=== PATIENT | male | born 1960 | race Caucasian/White ===

== ENCOUNTER 2018-03-08 21:00 | Emergency (ER) | payer OTHER ==
[2018-03-08 21:22] VITALS: BP 118/72; PULSE 71; TEMP 97.9; BMI 36.5
--- NOTE | 2018-03-08 21:40 | PDOC ---
History of Present Illness - General Chief Complaint: Rash Stated Complaint: RIGHT EYE PAIN AND SWELLING Time Seen by Provider: 03/08/18 21:31 History Source: Patient - History of Present Illness Initial Comments: 03/08/18 21:45 58 year old male with right eye lid redness and pain reports sratching the eye lid at work 2 days ago. redness worsening with pain to the right upper eye lid. no pain to the eye with movement no periorbital redness noted. Past History - Past Medical History Allergies/Adverse Reactions: Allergies Allergy/AdvReac Type Severity Reaction Status Date / Time No Known Allergies Allergy Verified 03/08/18 21:23 Home Medications: Ambulatory Orders Atorvastatin Ca [Lipitor] 10 mg PO HS 04/01/14 Cholecalciferol (Vitamin D3) [Vitamin D3] 1 tab PO DAILY 04/01/14 Amox-Tr/K Cl [Augmentin - 875Mg Tablet] 1 tab PO BID #20 tablet 03/08/18 Anemia: No Asthma: No Cancer: No Cardiac Disorders: No CVA: No COPD: No CHF: No Dementia: No Diabetes: Yes (LATENT DIABETES) GI Disorders: Yes (HEMORRHOIDS) Disorders: Yes (BPH) HTN: No Hypercholesterolemia: Yes Liver Disease: No Seizures: No Thyroid Disease: No - Surgical History Abdominal Surgery: No Appendectomy: No Cardiac Surgery: No Cholecystectomy: No Lung Surgery: No Neurologic Surgery: No Orthopedic Surgery: No - Suicide/Smoking/Psychosocial Hx Smoking History: Never smoked Have you smoked in the past 12 months: No Information on smoking cessation initiated: No Hx Alcohol Use: No Drug/Substance Use Hx: No Substance Use Type: None Hx Substance Use Treatment: No *Physical Exam - Vital Signs Last Vital Signs Temp Pulse Resp BP Pulse Ox 97.9 F 71 18 118/72 96 03/08/18 21:17 03/08/18 21:17 03/08/18 21:17 03/08/18 21:17 03/08/18 21:17 - Physical Exam General Appearance: Yes: Appropriately Dressed HEENT: positive: Other (right upper eye lid erythema warm to touch. PERRLA) Moderate Sedation - Procedure Monitoring Vital Signs: Procedure Monitoring Vital Signs Temperature 97.9 F 03/08/18 21:17 Pulse Rate 71 03/08/18 21:17 Respiratory Rate 18 03/08/18 21:17 Blood Pressure 118/72 03/08/18 21:17 O2 Sat by Pulse Oximetry (%) 96 03/08/18 21:17 *DC/Admit/Observation/Transfer Diagnosis at time of Disposition: Preseptal cellulitis of right eye - Discharge Dispostion Disposition: HOME - Prescriptions Prescriptions: Amox-Tr/K Cl [Augmentin - 875Mg Tablet] 1 tab PO BID #20 tablet - Referrals Referrals: Violette Winter MD [Staff Physician] - 2 Days - Patient Instructions Printed Discharge Instructions: DI for Cellulitis -- Adult Additional Instructions: Apply warm compress to the area Follow-up with an oil field laborer as soon as possible Return to the ER if symptoms worsen - Post Discharge Activity
== END 2018-03-08 22:00 | disposition home or self-care (01) ==
LOC: JERFT 21:00
DX: H00.031 Abscess of right upper eyelid (principal)
CPT/HCPCS: 99281-25

== ENCOUNTER 2021-05-12 04:34 | Day surgery (SDC) | payer OTHER ==
[2021-05-09 13:20] VITALS: BMI 45.3
[2021-05-12 09:43] VITALS: TEMP 97.7
[2021-05-12 10:22] VITALS: BP 110/60; PULSE 64
== END 2021-05-12 10:25 | disposition home or self-care (01) ==
LOC: JASU-ENDO 04:34
PROVIDERS: ATTEND Internal Medicine Gastroenterology
PROC: 0DBL8ZX Excision of Transverse Colon, Via Natural or Artificial Opening Endoscopic, Diagnostic (ICD-10-PCS; 2021-05-12)
PROC: 0DBK8ZX Excision of Ascending Colon, Via Natural or Artificial Opening Endoscopic, Diagnostic (ICD-10-PCS; principal; 2021-05-12 09:00)
DX: Z12.11 Encounter for screening for malignant neoplasm of colon (principal); D12.2 Benign neoplasm of ascending colon; D12.4 Benign neoplasm of descending colon; D12.3 Benign neoplasm of transverse colon; K64.8 Other hemorrhoids
CPT/HCPCS: 88305-TC

== ENCOUNTER 2021-08-12 21:00 | Emergency (ER) | payer OTHER ==
[2021-08-12 21:07] VITALS: TEMP 99.5; BMI 43.5
[2021-08-12] MEDS ORDERED: ASPIRIN 81 MG CHEWABLE TABLETS PO ONE (21:37)
[2021-08-12] MEDS ORDERED: ACETAMINOPHEN 1000 MG/100 ML BAG IVPB ONE (21:37)
[2021-08-12] MEDS ORDERED: ACETAMINOPHEN INJECTION 100 ML IVPB ONE (21:42)
[2021-08-12] MEDS ORDERED: ASPIRIN 81 MG CHEWABLE TABLETS ONE (21:43)
[2021-08-12 22:32] LABS: BASO % 0.3 % (0-2.0); EOS % 0.5 % (0-4.5); HEMATOCRIT 40.7 % (35.4-49); HEMOGLOBIN 13.8 GM/dL (11.7-16.9); LYMPH % 17.9 % (8-40); MCH 31.8 pg (25.7-33.7); MCHC 33.8 g/dl (32.0-35.9); MEAN CELL VOLUME 94.1 fl (80-96); MEAN PLT VOLUME 7.3 fl (7.5-11.1); MONO % 6.7 % (3.8-10.2); NEUT % 74.6 % (42.8-82.8); PLATELET COUNT 237 10^3/uL (134-434); RBC 4.33 M/mm3 (4.00-5.60); WHITE BLOOD COUNT 8.7 K/mm3 (4.0-10.0)
[2021-08-12 22:40] LABS: INR 1.15 (0.83-1.09)
[2021-08-12 22:53] LABS: CALCIUM 8.6 mg/dL (8.5-10.1)
[2021-08-12 22:54] LABS: ALBUMIN 3.6 g/dl (3.4-5.0); BLOOD UREA NITROGEN 19.5 mg/dL (7-18); MAGNESIUM 2.1 mg/dL (1.8-2.4)
[2021-08-12 22:58] LABS: TOT PROT 6.9 g/dl (6.4-8.2)
[2021-08-12 22:59] LABS: BILIRUBIN,TOTAL 0.8 mg/dL (0.2-1)
[2021-08-12 23:23] LABS: ACTIVATED PTT > 400.0 SECONDS (25.2-36.5)
[2021-08-12 23:57] LABS: INR 1.15 (0.83-1.09)
[2021-08-13 01:03] VITALS: BP 130/82; PULSE 79
[2021-08-13] MEDS ORDERED: AZITHROMYCIN 500 MG TABLET PO ONE (01:04)
[2021-08-13] MEDS ORDERED: AZITHROMYCIN 250 MG TABLET ONE (01:07)
[2021-08-13 01:29] LABS: ACTIVATED PTT > 400.0 SECONDS (25.2-36.5)
== END 2021-08-13 02:09 | disposition home or self-care (01) ==
LOC: JER 21:00
PROC: 3E033NZ Introduction of Analgesics, Hypnotics, Sedatives into Peripheral Vein, Percutaneous Approach (ICD-10-PCS; principal; 2021-08-12)
DX: R07.9 Chest pain, unspecified (principal); R79.1 Abnormal coagulation profile
CPT/HCPCS: 0241U-QW; 36415; 71046-TC-FY; 71275-TC; 80053; 83735; 84484; 85025; 85379; 85610; 85730; 87040; 93005; 93010; 99285-25; Q9967

== ENCOUNTER 2022-01-21 11:11 | Emergency (ER) | payer OTHER ==
[2022-01-21 11:32] VITALS: BP 120/69; PULSE 80; RESP 18; TEMP 98; BMI 43.5
[2022-01-21 12:14] LABS: BASO % 0.5 % (0-2.0); EOS % 1.3 % (0-4.5); HEMATOCRIT 39.6 % (35.4-49); LYMPH % 30.8 % (8-40); MCH 32.8 pg (25.7-33.7); MCHC 35.3 g/dl (32.0-35.9); MEAN CELL VOLUME 93.1 fl (80-96); MEAN PLT VOLUME 6.5 fl (7.5-11.1); MONO % 9.7 % (3.8-10.2); NEUT % 57.7 % (42.8-82.8); PLATELET COUNT 289 10^3/uL (134-434); RBC 4.25 M/mm3 (4.00-5.60); RDW 12.5 % (11.9-15.9); WHITE BLOOD COUNT 7.4 K/mm3 (4.0-10.0)
[2022-01-21 12:24] LABS: INR 1.14 (0.83-1.09)
[2022-01-21 12:43] LABS: CALCIUM 8.4 mg/dL (8.5-10.1)
[2022-01-21 12:45] LABS: ALBUMIN 3.7 g/dl (3.4-5.0); BLOOD UREA NITROGEN 27.1 mg/dL (7-18)
[2022-01-21 12:48] LABS: BILIRUBIN,TOTAL 0.7 mg/dL (0.2-1); CREATININE 1.1 mg/dL (0.55-1.3); TOT PROT 7.2 g/dl (6.4-8.2)
[2022-01-21 13:02] LABS: ACTIVATED PTT > 400.0 SECONDS (25.2-36.5)
[2022-01-21 14:40] LABS: PH,URINE 5.5 (5.0-8.0); URINE APPEARANCE CLEAR; URINE BILIRUBIN NEGATIVE (NEGATIVE); URINE COLOR YELLOW; URINE GLUCOSE (UA) NEGATIVE (NEGATIVE); URINE KETONE NEGATIVE (NEGATIVE); URINE LEUK ESTERASE NEGATIVE (NEGATIVE); URINE NITRITE NEGATIVE (NEGATIVE); URINE PROTEIN NEGATIVE (NEGATIVE); URINE UROBILINOGEN 0.2 mg/dL (0.2-1.0)
== END 2022-01-21 16:00 | disposition home or self-care (01) ==
LOC: JER 11:11
DX: R07.89 Other chest pain (principal); R51.9 Headache, unspecified; M54.9 Dorsalgia, unspecified; V89.2XXA Person injured in unspecified motor-vehicle accident, traffic, initial encounter; Y92.9 Unspecified place or not applicable
CPT/HCPCS: 36415; 70450-TC; 70486-TC; 71260-TC; 72125-TC; 72128-TC; 72131-TC; 73590-TC-LT-FY; 74177-TC; 80053; 81003; 84484; 85025; 85610; 85730; 86850; 86900; 86901; 93005; 93010; 93971-TC; 99285-25; C9803-CS; Q9967; U0003; U0005